=== PATIENT | female | born 1985 | race Two or more races ===

== ENCOUNTER 2025-03-14 11:18 | Inpatient (IN) | payer MEDICAID ==
[~2025-03-14] VITALS: Ht 165.1 cm; Wt 81.8 kg
[2025-03-14 11:19] VITALS: TEMP 97.3
--- NOTE | 2025-03-14 12:37 | ED.PDOC ---
SOB-HPI HPI Comments 39 y/o F, with no prior medical history presents to the ED for CC of shortness of breath. Patient states, she has been experiencing increased shortness of breath xmonths. Patient reports, that she currently is followed by a plugman however, has not received a diagnosis as to what may be causing symptoms. Patient comments on seeing PCP yesterday (03/13/25), and being placed on Symbicort. Patient denies chest pain, cough, nasal congestion, sore-throat, fever, or wheezing. No other symptoms or modifying factors are present at this time. Chief Complaint: Shortness of Breath Time Seen by MD: 12:00 Reviewed notes: Nurses Notes, Medications, Allergies Information Source: Patient Mode of Arrival: Ambulatory Severity: Moderate Timing: Months Duration: Since onset Context: At Rest PE Risk Factors: None History of: None Prehospital treatment: None Modifying Factors: Nothing Associated Signs and Symptoms: None Past Medical History PAST MEDICAL HISTORY: Denies Surgical History: Denies all surgeries CIVIL ENGINEER'S AIDE History: Denies all CIVIL ENGINEER'S AIDE Hx Family History Family History: Unknown Social History Smoker: Non-Smoker Alcohol: Denies ETOH Use Drugs: Denies Drug Use Lives In: Home Constitutional: denies: chills, diaphoresis, fatigue, fever, malaise, sweats, weakness, others EENTM: denies: blurred vision, double vision, ear bleeding, ear discharge, ear drainage, ear pain, ear ringing, eye pain, eye redness, hearing loss, mouth pain, mouth swelling, nasal discharge, nose bleeding, nose congestion, nose pain, photophobia, tearing, throat pain, throat swelling, voice changes, others Respiratory: reports: shortness of breath; denies: cough, hemoptysis, orthopnea, SOB at rest, SOB with excertion, stridor, wheezing, others Cardiovascular: denies: chest pain, dizzy spells, diaphoresis, Dyspnea on exertion, edema, irregular heart beat, left arm pain, lightheadedness, palpitations, PND, syncope, others Gastrointestinal: denies: abdomen distended, abdominal pain, blood streaked bowels, constipated, diarrhea, dysphagia, difficulty swallowing, hematemesis, melena, nausea, poor appetite, poor fluid intake, rectal bleeding, rectal pain, vomiting, others Genitourinary: denies: abnormal vagina bleeding, burning, dyspareunia, dysuria, flank pain, frequency, hematuria, incontinence, pain, , vagina discharge, urgency, others Neurological: denies: dizziness, fainting, headache, left sided numbness, left sided weakness, numbness, paresthesia, pre-existing deficit, right sided numbness, right sided weakness, seizure, speech problems, tingling, tremors, weakness, others Musculoskeletal: denies: back pain, gout, joint pain, joint swelling, muscle pain, muscle stiffness, neck pain, others Integumetry: denies: bruises, change in color, change in hair/nails, dryness, laceration, lesions, lumps, rash, wounds, others Allergic/Immunocompromised: denies: Difficulty Healing, Frequent Infections, Hives, Itching, others Hematologic/Lymphatic: denies: anemia, blood clots, easy bleeding, easy bruising, swollen glands, others Endocrine: denies: excessive hunger, excessive sweating, excessive thirst, excessive urination, flushing, intolerance to cold, intolerance to heat, unexplained weight gain, unexplained weight loss, others Psychiatric: denies: anxiety, bipolar disorder, depression, hopeless, panic disorder, schizophrenia, sleepless, suicidal, others All Other Systems: Reviewed and Negative Physical Exam General Appearance: Moderate Distress HEENT: Normal ENT Inspection, Pharynx Normal, TMs Normal Neck: Full Range of Motion, Non-Tender, Normal, Normal Inspection Respiratory: Accessory Muscle Use, Chest Non-Tender, Respiratory Distress, Other (Coarse breath sounds) Cardiovascular: No Edema, No JVD, No Murmur, No Gallop, Normal Peripheral Pulses, Regular Rate/Rhythm Breast Exam: Deferred Gastrointestinal: No Organomegaly, Non Tender, No Pulsatile Mass, Normal Bowel Sounds, Soft Genitalia: Deferred Pelvic: Deferred Rectal: Deferred Extremities: No calf tenderness, Normal capillary refill, Normal inspection, Normal range of motion, Non-tender, No pedal edema Musculoskeletal : Apperance: Normal Neurologic: Alert, breast surgeon II-XII nml as Tested, No Motor Deficits, Normal Affect, Normal Mood, No Sensory Deficits Cerebellar Function: NOT DONE Reflexes: NOT DONE Skin: Dry, Normal Color, Warm Peripheral Pulses: 3+ Radial (R), 3+ Radial (L) Lymphatic: No Adenopathy Was a procedure done? Was a procedure done?: No Differential Dx Differential Diagnosis: Anxiety, Asthma, Bronchitis, CHF, COPD, Pneumonia, Pulm onary Embolism X-Ray, Labs, Meds, VS Vital Signs Date Time Temp Pulse Resp B/P (MAP) Pulse Ox O2 Delivery O2 Flow Rate FiO2 03/14/25 13:45 20 98 Room Air* 0 21 03/14/25 11:38 75 03/14/25 11:19 97.3 85 22 149/61 95 97.3 Lab Test 03/14/25 12:55 03/14/25 12:15 Range/Units White Blood Count 6.4 4.4-10.8 10^3/uL Red Blood Count 5.15 4.0-5.20 10^6/uL Hemoglobin 12.6 12.2-16.2 g/dL Hematocrit 39.4 36.0-46.0 % Mean Corpuscular Volume 76.5 L 80.0-100.0 fL Mean Corpuscular Hemoglobin 24.4 L 28.0-32.0 pg Mean Corpuscular Hemoglobin Concent 32.0 32.0-36.0 g/dL Red Cell Distribution Width 18.1 H 11.8-14.3 % Platelet Count 403 140-450 10^3/uL Mean Platelet Volume 7.8 6.9-10.8 fL Neutrophils (%) (Auto) 65.0 37.0-80.0 % Lymphocytes (%) (Auto) 23.2 10.0-50.0 % Monocytes (%) (Auto) 8.8 0.0-12.0 % Eosinophils (%) (Auto) 2.5 0.0-7.0 % Basophils (%) (Auto) 0.5 0.0-2.0 % Neutrophils # (Auto) 4.2 1.6-8.6 10 ^3/uL Lymphocytes # (Auto) 1.5 0.4-5.4 10 ^3/uL Monocytes # (Auto) 0.6 0-1.3 10 ^3/uL Eosinophils # (Auto) 0.2 0-0.8 10 ^3/uL Basophils # (Auto) 0 0-0.2 10 ^3/uL Nucleated Red Blood Cells 0.1 % Sodium Level 139 136-145 mmol/L Potassium Level 3.4 L 3.5-5.1 mmol/L Chloride Level 104 98-107 mmol/L Carbon Dioxide Level 24 20-31 mmol/L Anion Gap 11 5-15 Blood Urea Nitrogen 7 L 9-23 mg/dL Creatinine 0.71 0.550-1.02 mg/dL Glomerular Filtration Rate Calc 109 >90 mL/min BUN/Creatinine Ratio 9.9 L 10.0-20.0 Serum Glucose 83 74-106 mg/dL Calcium Level 9.5 8.7-10.4 mg/dL B-Type Natriuretic Peptide 32.73 0-100 pg/mL Urine Color Yellow Yellow Urine Clarity Turbid H Clear Urine pH 5.5 5.0-9.0 Urine Specific [place] 1.023 1.001-1.035 Urine Protein Trace H Negative Urine Ketones 1+ H Negative Urine Blood 2+ H Negative /uL Urine Nitrite Negative Negative Urine Bilirubin Negative Negative Urine Urobilinogen 2 H Negative mg/dL Urine Leukocyte Esterase Trace Negative /uL Urine RBC 1 0 - 4 /hpf Urine Microscopic WBC < 1 0-5 /HPF Urine Squamous Epithelial Cells Mod <5 /hpf Urine Bacteria None seen None Seen /hpf Urine Mucus Few None Seen Urine Glucose Normal Normal mg/dL Current Medications Medications (Trade) Dose Ordered Sig/Isidra Route Start Time Stop Time Status Last Admin Albuterol (Ventolin Medneb) 5 mg ONCE ONCE NEB 03/14/25 13:45 03/14/25 13:46 DC 03/14/25 14:08 Ipratropium [place] (Atrovent Medneb) 0.5 mg ONCE ONCE NEB 03/14/25 13:45 03/14/25 13:46 DC 03/14/25 14:09 [place] [address] Ph: [phone] DIAGNOSTIC IMAGING Diagnostic Imaging Report : [id number] Signed PATIENT: MADI SCHULTZ ACCT: [id number] UNIT: [id number] : 1985 LOC: ER ROOM / BED: / AGE / SEX: 39 / F ADM STATUS: REG ER SERVICE 1215 ORDERING PHYSICIAN: MYNOR RECINOS MD PROCEDURE(s): CXRP - CHEST PORTABLE REASON: sob ORDER NUMBER(s): [id number], ACCESSION NUMBER(s): [id number] CHEST RADIOGRAPH Indication: sob Technique: XY CHEST PORTABLE Comparison: None FINDINGS: The cardiac silhouette is unremarkable. The lungs demonstrate no pulmonary airspace consolidation. The pulmonary vasculature is unremarkable. There is no pleural effusion. There is no pneumothorax. IMPRESSION: No pulmonary airspace consolidation. ATED BY: NINI MAYEN MD DICTATED DATE/TIME: 03/14/258 SIGNED BY: NINI MAYEN MD SIGNED DATE/TIME: 03/14/258 CC: Patient alert. Came in because of shortness a breath. Chest x-ray reviewed does not show any acute process. Vitals stable. She can not complete sentences without having shortness a breath. Explained to the patient. Continue monitoring. Time of 1ST Reevaluation: 12:30 Reevaluation 1ST: Unchanged Patient Education/Counseling: Diagnosis, Treatment Family Education/Counseling: No Family Present SEPSIS Sepsis Screen Date sepsis recognized/suspect: Mar 14, 2025 Time Sepsis recognized/suspect: 1119 Recent Procedure: No On Antibiotic Therapy: No Respiratory Rate >20: Yes Heart Rate >90: No Temp<36 C (96.8 F) or >38.3 C: No SBP <90 or MAP <65 mmHG: No New Acute Mental Status Change: No Is the patient on CPAP, BIPAP,: No Physician Orders Chest Portable (03/14/25 12:15) Vital Signs Date Time Temp Pulse Resp B/P (MAP) Pulse Ox O2 Delivery O2 Flow Rate FiO2 03/14/25 13:45 20 98 Room Air* 0 21 03/14/25 11:38 75 03/14/25 11:19 97.3 85 22 149/61 95 97.3 Laboratory Tests Test 03/14/25 12:55 White Blood Count 6.4 10^3/uL (4.4-10.8) Medications Medications Dose Ordered Sig/Isidra Route Start Time Stop Time Status Last Admin Dose Admin Albuterol 5 mg ONCE ONCE NEB 03/14/25 13:45 03/14/25 13:46 DC 03/14/25 14:08 Ipratropium [place] 0.5 mg ONCE ONCE NEB 03/14/25 13:45 03/14/25 13:46 DC 03/14/25 14:09 Departure 1 Departure Time of Disposition: 13:34 Impression: Primary Impression: Acute respiratory distress Disposition: ADMITTED INPATIENT Admit to: Med Surg Condition: Guarded Critical Care Note Critical Care Time?: Yes (90 min-critical care time only) Stability Stability form required: No Heart Score Heart Score: Heart Score Response (Comments) Value History N/A 0 EKG N/A 0 Age N/A 0 Risk Factors N/A 0 Troponin N/A 0 Total 0 I personally scribed for MYNOR RECINOS MD ([email or web address]) on 03/14/25 at 12:36. Electronically submitted by Monse Arguelles ([email or web address]). I personally scribed for MYNOR RECINOS MD ([email or web address]) on 03/14/25 at 12:50. Electronically submitted by Monse Arguelles ([email or web address]). I personally scribed for MYNOR RECINOS MD ([email or web address]) on 03/14/25 at 15:24. Electronically submitted by Joey Mederos ([email or web address]). MYNOR RECINOS MD Mar 14, 2025 12:36
--- NOTE | 2025-03-14 12:47 | DVH ---
CHEST RADIOGRAPH Indication: sob Technique: XY CHEST PORTABLE Comparison: None FINDINGS: The cardiac silhouette is unremarkable. The lungs demonstrate no pulmonary airspace consolidation. Th e pulmonary vasculature is unremarkable. There is no pleural effusion. There is no pneumothorax. IMPRESSION: No pulmonary airspace consolidation.
--- NOTE | 2025-03-14 13:08 | ECG ---
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
[2025-03-14 13:13] LABS: Hemoglobin 12.6 g/dL (12.2-16.2)
[2025-03-14 13:14] LABS: Hematocrit 39.4 % (36.0-46.0); Mean Corpuscular Hemoglobin 24.4 pg (28.0-32.0); Mean Corpuscular Volume 76.5 fL (80.0-100.0); Nucleated Red Blood Cells % 0.1 %
[2025-03-14 13:28] LABS: Chloride 104 mmol/L (98-107); Potassium 3.4 mmol/L (3.5-5.1); Sodium 139 mmol/L (136-145)
[2025-03-14 13:29] LABS: Anion Gap 11 (5-15); Calcium 9.5 mg/dL (8.7-10.4); Carbon Dioxide 24 mmol/L (20-31)
[2025-03-14 13:34] LABS: BUN/Creatinine Ratio 9.9 (10.0-20.0); Glucose 83 mg/dL (74-106)
[2025-03-14 13:35] LABS: Blood Urea Nitrogen 7 mg/dL (9-23)
[2025-03-14] MEDS: ALBUTEROL SULF 2.5 MG/0.5ML(0.5%) NEB SOLN NEB ONE (14:08)
[2025-03-14] MEDS: IPRATROPIUM BROM 0.5 MG/2.5ML INH SOL NEB ONE (14:09)
[2025-03-14 14:16] LABS: Urine Protein, UAD TRACE (Negative)
[2025-03-14] MEDS: FUROSEMIDE 40 MG/4 ML VIAL IV ONE (16:21)
[2025-03-14] MEDS: MAGNESIUM SULFATE 1GM/100ML 100 ML IV ONE (16:21)
[2025-03-14] MEDS: methylPREDNISolone SOD SUCC 125 MG/2 ML VL IV ONE (16:21)
[2025-03-14] MEDS ORDERED: DOCUSATE SOD 100 MG CAP PO PRN (16:30)
[2025-03-14] MEDS ORDERED: NITROGLYCERIN 0.4 MG SL TAB SL PRN (16:30)
[2025-03-14] MEDS ORDERED: HYDROcodone-ACET 5/325MG TAB PO PRN (16:30)
[2025-03-14] MEDS ORDERED: ACETAMINOPHEN 325 MG TAB PO PRN (16:30)
[2025-03-14] MEDS ORDERED: ONDANSETRON HCL 4 MG/2 ML VIAL IV PRN (16:30)
[2025-03-14] MEDS ORDERED: MORPHINE SULFATE INJ 2 MG/ml SYRG IV PRN (16:30)
[2025-03-14] MEDS ORDERED: BUSP5TAB51 PO (16:34)
[2025-03-14] MEDS ORDERED: PROP60CA37 PO (16:34)
[2025-03-14] MEDS ORDERED: AMIT-238 PO (16:34)
--- NOTE | 2025-03-14 17:21 | DVHHP2 ---
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 Patient states her shortness of breath started in March of 2024 around the time of her last surgery. At first she thought it was due to the surgery and anesthesia. When her symptoms continued she was seen by her primary care provider. Her primary care provider was not able to diagnosis her and sent her to pulmonology. She has been following with pulmonology for a few months and feels that nothing has changed. She was rece ntly stopped on her albuterol inhaler and started on Symbicort. She states she is not having any improvement. She states she has not had a diagnosis and is frustrated. She has noticed that humidity worsens her shortness of breath. At times she states it is so severe she is not able to speak in complete sentences. She is being told it could be stress and anxiety related, but she does not feel stressed. Psych: Anxiety, Depression Past Surgical History: Cholecystectomy, Other (Brain surgery x 3, last March 2024), Total knee replacement (right), Tonsillectomy Smoke: No ALCOHOL: none Drugs: Marijuana Lives: with Family Domestic Violence: Neg Review of Systems Constitutional: No: Fever, Chills, Sweats, Weakness, Malaise, Other Eyes: No: Pain, Vision change, Conjunctivae inflammation, Eyelid inflammation, Other, Redness ENT: No: Ear pain, Ear discharge, Nose pain, Nose discharge, Nose congestion, Mouth pain, Mouth swelling, Throat pain, Throat swelling, Other Respiratory: Shortness of breath, SOB with excertion, Wheezing, Wheezing; No: Cough, Dry, Hemoptysis, Pleuritic Pain, Sputum, Other Cardiovascular: No: Chest Pain, Palpitations, Orthopnea, Paroxysmal Noc. Dyspnea, Edema, Lt Headedness, Other Gastrointestinal: No: Nausea, Vomiting, Abdominal Pain, Diarrhea, Constipation, Melena, Hematochezia, Other Genitourinary: No Dysuria, No Frequency, No Incontinence, No Hematuria, No Retention, No Other Musculoskeletal: No: other, neck pain, shoulder pain, arm pain, back pain, hand pain, leg pain, foot pain Skin: No: Rash, Lesions, Jaundice, Bruising, Other Neurological: No: Weakness, Numbness, Incoordination, Change in speech, Confusion, Seizures, Other Allergies: Coded Allergies: NO KNOWN ALLERGIES (Unverified , 03/14/25) Medications Current Medications Medications Dose Ordered Sig/Isidra Route Start Time Stop Time Status Last Admin Dose Admin Acetaminophen/ Hydrocodone Bitart 1 tab Q4HP PRN PO 03/14/25 16:30 Ondansetron HCl 4 mg Q4HP PRN IV 03/14/25 16:30 Docusate Sodium 100 mg BIDPRN PRN PO 03/14/25 16:30 Acetaminophen 650 mg Q6HP PRN PO 03/14/25 16:30 Nitroglycerin 0.4 mg Q5MINP PRN SL 03/14/25 16:30 Morphine Sulfate 2 mg Q30M PRN IV 03/14/25 16:30 Exam Vital Signs Vital Signs Date Time Temp Pulse Resp B/P (MAP) Pulse Ox O2 Delivery O2 Flow Rate FiO2 03/14/25 16:21 154/97 03/14/25 15:44 77 18 96 03/14/25 15:44 Room Air 03/14/25 13:45 0 21 03/14/25 11:19 97.3 97.3 General Appearance: Alert, Oriented X3, Cooperative HEENT: Atraumatic, PERRLA, Mucous membr. moist/pink Respiratory: Other (Diminished breath sounds) Cardiovascular: Regular rate, Normal S1, Normal S2 Abdominal: Normal bowel sounds, Soft, No tenderness, No hepatospenomegaly Extremities: No clubbing, No cyanosis, No edema, Normal pulses, No tenderness/swelling Skin: No rashes, No breakdown, No significant lesion Neuro: Normal gait, Normal speech, Strength at 5/5 X4 ext, Normal tone Psych/Mental Status: Mental status NL, Mood NL Labs/Xrays Labs Test 03/14/25 12:55 03/14/25 12:15 Range/Units White Blood Count 6.4 4.4-10.8 10^3/uL Red Blood Count 5.15 4.0-5.20 10^6/uL Hemoglobin 12.6 12.2-16.2 g/dL Hematocrit 39.4 36.0-46.0 % Mean Corpuscular Volume 76.5 L 80.0-100.0 fL Mean Corpuscular Hemoglobin 24.4 L 28.0-32.0 pg Mean Corpuscular Hemoglobin Concent 32.0 32.0-36.0 g/dL Red Cell Distribution Width 18.1 H 11.8-14.3 % Platelet Count 403 140-450 10^3/uL Mean Platelet Volume 7.8 6.9-10.8 fL Neutrophils (%) (Auto) 65.0 37.0-80.0 % Lymphocytes (%) (Auto) 23.2 10.0-50.0 % Monocytes (%) (Auto) 8.8 0.0-12.0 % Eosinophils (%) (Auto) 2.5 0.0-7.0 % Basophils (%) (Auto) 0.5 0.0-2.0 % Neutrophils # (Auto) 4.2 1.6-8.6 10 ^3/uL Lymphocytes # (Auto) 1.5 0.4-5.4 10 ^3/uL Monocytes # (Auto) 0.6 0-1.3 10 ^3/uL Eosinophils # (Auto) 0.2 0-0.8 10 ^3/uL Basophils # (Auto) 0 0-0.2 10 ^3/uL Nucleated Red Blood Cells 0.1 % D-Dimer, Quantitative 0.43 0.0-0.49 mg/L FEU Sodium Level 139 136-145 mmol/L Potassium Level 3.4 L 3.5-5.1 mmol/L Chloride Level 104 98-107 mmol/L Carbon Dioxide Level 24 20-31 mmol/L Anion Gap 11 5-15 Blood Urea Nitrogen 7 L 9-23 mg/dL Creatinine 0.71 0.550-1.02 mg/dL Glomerular Filtration Rate Calc 109 >90 mL/min BUN/Creatinine Ratio 9.9 L 10.0-20.0 Serum Glucose 83 74-106 mg/dL Calcium Level 9.5 8.7-10.4 mg/dL B-Type Natriuretic Peptide 32.73 0-100 pg/mL Urine Color Yellow Yellow Urine Clarity Turbid H Clear Urine pH 5.5 5.0-9.0 Urine Specific [place] 1.023 1.001-1.035 Urine Protein Trace H Negative Urine Ketones 1+ H Negative Urine Blood 2+ H Negative /uL Urine Nitrite Negative Negative Urine Bilirubin Negative Negative Urine Urobilinogen 2 H Negative mg/dL Urine Leukocyte Esterase Trace Negative /uL Urine RBC 1 0 - 4 /hpf Urine Microscopic WBC < 1 0-5 /HPF Urine Squamous Epithelial Cells Mod <5 /hpf Urine Bacteria None seen None Seen /hpf Urine Mucus Few None Seen Urine Glucose Normal Normal mg/dL CHEST RADIOGRAPH FINDINGS: The cardiac silhouette is unremarkable. The lungs demonstrate no pulmonary airspace consolidation. The pulmonary vasculature is unremarkable. There is no pleural effusion. There is no pneumothorax. IMPRESSION: No pulmonary airspace consolidation. SEPSIS Sepsis Screen Date sepsis recognized/suspect: Mar 14, 2025 Time Sepsis recognized/suspect: 1118 Recent Procedure: No On Antibiotic Therapy: No Respiratory Rate >20: Yes Heart Rate >90: No Temp<36 C (96.8 F) or >38.3 C: No SBP <90 or MAP <65 mmHG: No New Acute Mental Status Change: No Is the patient on CPAP, BIPAP,: No Physician Orders Chest Portable (03/14/25 12:15) Admit (03/14/25 16:19) Code Status (03/14/25 16:19) Hydrocodone-Acet 5/325mg Tab ([place] 5/32 (03/14/25 16:30) Ondansetron Hcl (Zofran) (03/14/25 16:30) Docusate Sodium Capsule (Colace Capsule) (03/14/25 16:30) Complete Blood Count (03/15/25 04:00) Comprehensive Metabolic Panel (03/15/25 04:00) Condition: Serious (03/14/25 16:19) Acetaminophen Tablet (Tylenol Tablet) (03/14/25 16:30) Nitroglycerin Sublingual (Ntrostat Subli (03/14/25 16:30) Morphine Sulfate Injection (03/14/25 16:30) Stat Ekg For Chest Pain (03/14/25 16:19) Notify Md Of Changes From Base (03/14/25 16:19) Cinnamon Grinder For 24 Hours (03/14/25 16:19) Emergency Dysrhythmia Protocol (03/14/25 16:19) Rhythm Strips Once Every Shift (03/14/25 16:19) Oxygen By Nasal Cannula (03/14/25 16:19) Vital Signs Date Time Temp Pulse Resp B/P (MAP) Pulse Ox O2 Delivery O2 Flow Rate FiO2 03/14/25 16:21 154/97 03/14/25 15:44 77 18 148/88 (108) 96 03/14/25 15:44 78 18 97 Room Air 03/14/25 13:45 20 98 Room Air* 0 21 03/14/25 11:38 75 03/14/25 11:19 97.3 85 22 149/61 95 97.3 Laboratory Tests Test 03/14/25 12:55 White Blood Count 6.4 10^3/uL (4.4-10.8) Medications Medications Dose Ordered Sig/Isidra Route Start Time Stop Time Status Last Admin Dose Admin Albuterol 5 mg ONCE ONCE NEB 03/14/25 13:45 03/14/25 13:46 DC 03/14/25 14:08 5 MG Furosemide 40 mg ONCE ONCE IV 03/14/25 13:45 03/14/25 13:46 DC 03/14/25 16:21 40 MG Ipratropium [place] 0.5 mg ONCE ONCE NEB 03/14/25 13:45 03/14/25 13:46 DC 03/14/25 14:09 0.5 MG Magnesium Sulfate/ Dextrose 100 ml @ 100 mls/hr ONCE ONCE IV 03/14/25 13:45 03/14/25 14:44 DC 03/14/25 16:21 100 MLS/HR Methylprednisolone Sodium Succinate 125 mg ONCE ONCE IV 03/14/25 13:45 03/14/25 13:46 DC 03/14/25 16:21 125 MG Assessment/Plan Assessment/Plan Assessment: Acute respiratory distress, Hypokalemia, Plan: Admit to Tele, D-Dimer, Consider CT chest, Consider pulmonology consult, Breathing treatments as needed, Supplemental oxygen as needed, Mange/Monitor electrolytes, Home medications reconciled, Plan discussed with: Patient My Orders Orders - FADIA RICHARDSON Procedure Category Date Status Time Admit ADMIT 03/14/25 Transmitted 16:19 Code Status CODE 03/14/25 Transmitted 16:19 Hydrocodone-Acet PHA 03/14/25 In Process 5/325mg Tab ([place] 16:30 Ondansetron Hcl PHA 03/14/25 In Process (Zofran) 16:30 Docusate Sodium PHA 03/14/25 In Process Capsule (Colace 16:30 Complete Blood Count LAB 03/15/25 Verified 04:00 Comprehensive LAB 03/15/25 Verified Metabolic Panel 04:00 Condition: Serious [facility] 03/14/25 In Process 16:19 Acetaminophen Tablet [facility] 03/14/25 In Process (Tylenol Tablet) 16:30 Nitroglycerin [facility] 03/14/25 In Process Sublingual (Ntrostat 16:30 Morphine Sulfate [facility] 03/14/25 In Process Injection 16:30 Stat Ekg For Chest [facility] 03/14/25 In Process Pain 16:19 Notify Md Of Changes [facility] 03/14/25 In Process From Base 16:19 Cinnamon Grinder For [facility] 03/14/25 In Process 24 Hours 16:19 Emergency Dysrhythmia [facility] 03/14/25 In Process Protocol 16:19 Rhythm Strips Once [facility] 03/14/25 In Process Every Shift 16:19 Oxygen By Nasal RT 03/14/25 Transmitted Cannula 16:19 Date of Service: Mar 14, 2025 Billing Provider: FADIA RICHARDSON Common Visit Codes: [id number] INP/OBS CARE (MOD) FADIA RICHARDSON Mar 14, 2025 17:21
[2025-03-14] MEDS: POTASSIUM CHL 20 Meq TABLET PO ONE (17:56)
[2025-03-14 18:14] VITALS: BP 122/67; PULSE 67; RESP 20; O2SAT 99
== END 2025-03-14 18:14 | disposition left against medical advice (07) | DRG 144 ==
LOC: ER 11:18 → OVERFLOW 16:19
PROVIDERS: ADMIT Nurse Practitioner Family; ATTEND Nurse Practitioner Family
DX: R06.03 Acute respiratory distress (principal); E87.6 Hypokalemia; F32.A Depression, unspecified; F41.9 Anxiety disorder, unspecified; Z96.651 Presence of right artificial knee joint; Z53.29 Procedure and treatment not carried out because of patient's decision for other reasons; Z90.49 Acquired absence of other specified parts of digestive tract
CPT/HCPCS: 36415; 71045; 80048; 81001; 83880; 85025; 85379; 93005; 94640; 96365; 99291; 99292; G0378